=== PATIENT | female | born 1995 | race Caucasian/White ===

== ENCOUNTER 2018-12-02 03:01 | Emergency (ER) | payer OTHER ==
[2018-12-02 03:50] VITALS: BP 114/73; PULSE 81; TEMP 98; BMI 23.4
--- NOTE | 2018-12-02 03:57 | PDOC ---
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 via private auto because she has right leg pain. The patient states her leg began hurting after she fell on it in an awkward fashion while she was participating in an [employer] lesson earlier [facility]. She is able to walk on her hip but experiences pain when she walks on it. She has not taken any medications for the pain. She states she has a bruise on the outside of her leg from where she fell. Denies any fevers, chills, infections. Denies dysura, freq, urgency. LMP: 2 weeks prior PCP: Nikunj Dow PSH: Finger sx Social Hx: Denies smoking, drinking, or other substance usage. Allergies: NKA, NKDA Past History - Past Medical History Allergies/Adverse Reactions: Allergies Allergy/AdvReac Type Severity Reaction Status Date / Time No Known Allergies Allergy Verified 12/02/18 03:51 COPD: No - Suicide/Smoking/Psychosocial Hx Smoking History: Never smoked Review of Systems - Review of Systems Able to Perform ROS?: Yes Comments:: CONSTITUTIONAL: Absent: fever, no chills, no fatigue EYES: Absent: visual changes ENT: Absent: ear pain, no sore throat CARDIOVASCULAR: Absent: chest pain, no palpitations RESPIRATORY: Absent: cough, no SOB GI: Absent: abdominal pain, no nausea, no vomiting, no constipation, no diarrhea GENITOURINARY: Absent: dysuria, no frequency, no hematuria MUSKULOSKELETAL: Present: Arthralgia Absent: back pain, no myalgia SKIN: Absent: rash NEURO: Absent: headache *Physical Exam - Vital Signs Last Vital Signs Temp Pulse Resp BP Pulse Ox 98.0 F 81 18 114/73 100 12/02/18 03:47 12/02/18 03:47 12/02/18 03:47 12/02/18 03:47 12/02/18 03:47 - Physical Exam Comments: GENERAL: Well-appearing, well-nourished. No apparent distress. HEENT: Normocephalic, atraumatic. PERRL, EOM intact. CARDIOVASCULAR: Normal S1, S2. Regular rate and rhythm. PULMONARY: No evidence of respiratory distress. Lungs clear to auscultation bilaterally. No wheezing, rales or rhonchi. ABDOMEN: Soft, non-distended, non-tender. EXTREMITIES: Normal ROM in all four extremities. No gross deformities. RIGHTLEG: There is a slight bruise and there is TTP when pushing on her lateral femur. Full ROM aat hip and knee. SKIN: Warm, dry. No rash NEUROLOGICAL: No focal neurological deficits. Gait has a mild limp and patient favors her left leg. 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 via private auto because she has right leg pain. The patient states her leg began hurting after she fell on it in an awkward fashion while she was participating in an [employer] lesson earlier [facility]. She is able to walk on her hip but experiences pain when she walks on it. She has not taken any medications for the pain. She states she has a bruise on the outside of her leg from where she fell. Vital Signs Temp Pulse Resp BP Pulse Ox 98.0 F 81 18 114/73 100 12/02/18 03:47 12/02/18 03:47 12/02/18 03:47 12/02/18 03:47 12/02/18 03:47 MDM: This patient presents with leg pain after hurting it during MMA practice. She is able to walk on her leg and I have no concern for a hip fx. Plan: hcg, femur xr, Motrin, re-assess. XR's: Normal no signs of fx Disposition: Home with pcp FU if pain persists. *DC/Admit/Observation/Transfer Diagnosis at time of Disposition: Right leg pain - Discharge Dispostion Disposition: HOME Condition at time of disposition: Improved Decision to Admit order: No - Referrals Referrals: Nikunj Dow [Primary Care Provider] - - Patient Instructions Printed Discharge Instructions: How To Perform RICE (Rest, Ice, Compress, Elevate), DI for Leg Pain Additional Instructions: You came into the Er with leg pain. Try to rest your leg as much as possible for the next 2 days. Apply ice on and off for the next 24 hours. Take anti- inflammatory drugs as needed for pain control. Please make sure to call up your primary care doctor and schedule a follow up appointment in the next 3 to 5 days. Come back to the ER immediately if you get a fever, your pain worsens, you can' t walk, or have any other new or worsening concerns. Thank you for coming to the [facility] ER. We hope you feel better soon! Print Language: TAMAZIGHT - Post Discharge Activity Forms/Work/School Notes: Back to Work
[2018-12-02] MEDS ORDERED: IBUPROFEN 400 MG TABLET (FP) PO ONE ×2 (04:12→04:34)
--- NOTE | 2018-12-02 05:24 | PDOC ---
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 No other complaints. Pt is able to ambulate. - Medical Decision Making 12/02/18 05:46 Pt will be discharged home. She will follow with PMD as needed. Pt will be given 2-3 days off and she will be treated with analgesics and ice. She is able to ambulate.
[2018-12-02] MEDS ORDERED: ACETAMINOPHEN 500 MG TABLET (FP) PO ONE (05:45)
[2018-12-02] MEDS ORDERED: ACETAMINOPHEN 325 MG TABLET (FP) ONE (05:46)
== END 2018-12-02 05:55 | disposition home or self-care (01) ==
LOC: JER 03:01
DX: M79.604 Pain in right leg (principal)
CPT/HCPCS: 73552-TC-RT-FY; 84703; 99281-25